=== PATIENT | male | born 1990 | race Asian ===

== ENCOUNTER → 2017-01-18 06:12 | Day surgery (SDC) | payer OTHER ==
[~2017-01-18 06:12] MED LIST: Bupivacaine 0.5% SDV PF* 30 ML VIAL ONE; Dexamethasone IV* 4 MG/ML 1 ML (4 MG) ONE; Dexmedetomidine* 200 MCG/2 ML 2 ML VIAL ONE; DiMENhydriNATE IV* 50 MG/ML VIAL IV PUSH PRN; Famotidine IV* 10 MG/ML 2 ML (20 mg) ONE; HYDROmorphone* 1 MG/ML 1 ML SYR IV PRN; HYDROmorphone* 1 MG/ML 1 ML SYR ONE; Ketorolac INJ* 30 MG/ML 1 ML VIAL ONE; Lidocaine 2% PF* 5 ML VIAL ONE; Midazolam* 1 MG/ML 5 ML VIAL (5 MG) ONE; Ondansetron INJ* 2 MG/ML VIAL IV PRN; Ondansetron INJ* 2 MG/ML VIAL ONE; PROCHLORPERAZINE INJ 5 MG/ML 2 ML VIAL IV PRN; PROCHLORPERAZINE INJ 5 MG/ML 2 ML VIAL ONE; Phenylephrine IV* 40 MCG/ML 10 ML SYRINGE ONE; Propofol* 10 MG/ML 20 ML BTL IV PUSH ONE; Scopolamine 1.5 mg* PATCH TRANSDERM PRN; Scopolomine PATCH Remove* 1 NOTE MISC PATCH OFF ONE; ceFAZolin 2 GM PREMIX(*) 2 GM/50 ML BAG IVPB ONE; fentaNYL* 50 MCG/ML 2 ML VIAL (100 MCG VIAL) IV PRN; fentaNYL* 50 MCG/ML 2 ML VIAL (100 MCG VIAL) ONE; oxyCODONE TAB* 5 MG TAB ONE
--- NOTE | 2017-01-18 09:54 | RAD ---
INDICATION: Intramedullary joanne placement COMPARISON: None FINDINGS: 8.9 seconds of fluoroscopy were provided for the orthopedics department. Fluoroscopic spot imaging of the lower extremity were obtained for operative control for tibial rodding. Post procedure images are pending CPT II Codes: 6045F (fluoro time doc)
[2017-01-18 10:35] VITALS: BP 115/78
--- NOTE | 2017-01-19 11:49 | OP ---
OPERATIVE REPORT: DATE OF OPERATION: 01/18/17 DATE OF : 86 SURGEON: Leo Watt MD HOSPITAL MORTICIAN: Chhaya Dobbins PA-C PRE-OP DIAGNOSIS: Chronic stress fracture, left tibia shaft. POST-OP DIAGNOSIS: Chronic stress fracture, left tibia shaft. OPERATIVE PROCEDURE: Intramedullary nailing, left tibia, with a Synthes 8 x 315 mm nail. DESCRIPTION OF PROCEDURE: The patient was taken to the operating room where the thigh tourniquet wa s not elevated. We made a longitudinal incision from the patella to the tubercle splitting the manzo llar tendon. We then placed a guide pin in the standard position in the proximal central plateau. We overreamed to a level of 8 mm, potential nail, going up to 9.5 mm. Good chatter was obtain ed at the isthmus. The size 8 mm x 315 mm nail and this was passed down the canal smoothly. We loc ked this distally with one static locking screw. We then irrigated thoroughly closing the patellar tendon with 0 Vicryl sutures, 2-0 Vicryl for the subcu, and trae for the skin as well as the medi al screw hole. We placed compression dressing and plaster splint. [id number]/[facility] #: [id number]
== END | disposition home or self-care (01) ==
LOC: OR 06:12
PROVIDERS: ATTEND Orthopaedic Surgery
DX: M84.362A Stress fracture, left tibia, initial encounter for fracture (principal); E03.9 Hypothyroidism, unspecified
CPT/HCPCS: A9270-GY; C1713; C1776; J0690; J0780; J1100; J1170; J1885; J2250; J2405; J2704; J3010